=== PATIENT | male | born 1945 | race Caucasian/White ===

== ENCOUNTER 2023-08-31 13:18 | Emergency (ER) | payer MEDICARE, BC ==
[~2023-08-31] VITALS: Ht 190.5 cm; Wt 103.0 kg
[2023-08-31] MEDS: IV NS 0.9% 1,000 ML BAG IV ONE (13:45)
[2023-08-31 13:58] LABS: BASOPHILS % (AUTO) 0.7 % (0.0-2.0); EOSINOPHILS # (AUTO) 0.5 K/uL (0.0-0.7); EOSINOPHILS % (AUTO) 7.7 % (0.0-6.0); HEMATOCRIT 39 % (39-51); HEMOGLOBIN 12.9 g/dL (13.5-17.5); LYMPHOCYTES # (AUTO) 0.6 K/uL (0.8-4.8); LYMPHOCYTES % (AUTO) 9.5 % (20.0-44.0); MEAN CORPUSCULAR HEMOGLOBIN 31 PG (26.0-33.0); MEAN CORPUSCULAR HGB CONC 33 g/dl (31.0-36.0); MEAN CORPUSCULAR VOLUME 92 fL (80-96); MONOCYTES # (AUTO) 0.4 K/uL (0.1-1.30); MONOCYTES % (AUTO) 7.1 % (2.0-12.0); NEUTROPHILS # (AUTO) 4.4 K/uL (1.8-8.9); PLATELET COUNT (AUTO) 187 K/uL (150-450); RED BLOOD CELL COUNT(AUTO) 4.23 MIL/uL (4.5-6.0); RED CELL DISTRIBUTION WIDTH 14.7 % (11.5-15.0); WHITE BLOOD COUNT (AUTO) 5.9 K/uL (4.3-11.0)
[2023-08-31 14:08] LABS: CARBON DIOXIDE 29 mmol/L (21-32); CHLORIDE 103 mmol/L (98-107); CREATININE 2.1 mg/dL (0.6-1.3); GLUCOSE 108 mg/dL (74-106); POTASSIUM 3.9 mmol/L (3.5-5.1); SODIUM SERUM 137 mmol/L (136-145); UREA NITROGEN, BLOOD 45 mg/dL (7-18)
[2023-08-31 14:18] LABS: ALANINE AMINOTRANSFERASE 20 U/L (12-78); ALBUMIN 3.3 g/dL (3.4-5.0); ALKALINE PHOSPHATASE 57 U/L (46-116); ASPARTATE AMINOTRANSFERASE 14 U/L (15-37); BILIRUBIN,DIRECT 0.2 mg/dL (0.0-0.2); BILIRUBIN,TOTAL 0.7 mg/dL (0.2-1.0)
[2023-08-31] MEDS ORDERED: CLOP75TA15 PO (14:34)
[2023-08-31] MEDS ORDERED: DONE10TA44 PO (14:34)
[2023-08-31] MEDS ORDERED: SACU1TAB4 PO (14:34)
[2023-08-31] MEDS ORDERED: AMLO-212 PO (14:34)
[2023-08-31] MEDS ORDERED: BIOT10TA PO (14:34)
[2023-08-31] MEDS ORDERED: CARV25TA2 PO (14:34)
[2023-08-31] MEDS ORDERED: HYDR-500 PO (14:34)
[2023-08-31] MEDS ORDERED: RIVA2.5T PO (14:34)
[2023-08-31] MEDS ORDERED: DIPH1TAB PO (14:34)
[2023-08-31] MEDS ORDERED: LORA-259 PO (14:34)
[2023-08-31] MEDS ORDERED: DAPA10TA PO (14:34)
[2023-08-31] MEDS ORDERED: LEVO50TA PO (14:34)
[2023-08-31] MEDS ORDERED: ACET-2605 PO (14:34)
[2023-08-31] MEDS ORDERED: TORS20TA3 PO (14:34)
[2023-08-31] MEDS ORDERED: MAGN400T52 PO (14:34)
[2023-08-31] MEDS ORDERED: POTA-88 PO (14:34)
[2023-08-31 14:36] LABS: CALCIUM, SERUM 9.2 mg/dL (8.5-10.1)
[2023-08-31 16:57] VITALS: BP 133/75; TEMP 98.2; O2SAT 98
== END 2023-08-31 17:01 | disposition home or self-care (01) ==
LOC: ER 13:20
DX: R53.1 Weakness (principal); I10 Essential (primary) hypertension; I48.91 Unspecified atrial fibrillation; Z79.899 Other long term (current) drug therapy
CPT/HCPCS: 99284; 96360; 93005; 85025; 80048; 80076; 36415; 84484 ×2; 82962; J7030